=== PATIENT | male | born 1985 | race Caucasian/White ===

== ENCOUNTER 2020-08-10 21:42 | Emergency (ER) | payer MEDICAID ==
--- NOTE | 2020-08-10 23:04 | EDM.PDOC ---
ED HPI GENERAL MEDICAL PROBLEM - General Chief Complaint: Lower Extremity Injury/Pain Stated Complaint: RIGHT KNEE PAIN Time Seen by Provider: 08/10/20 22:21 Source of Information: Reports: Patient, Family, RN Notes Reviewed History Limitations: Reports: No Limitations - History of Present Illness INITIAL COMMENTS - FREE TEXT/NARRATIVE: 35-year-old gentleman presents emergency department day complaint of right knee pain he has a history of chronic knee pain with some ligament injury today he was walking on his knee totally gave him he went down on his knee now he is in significant pain he has used tramadol with some relief. He recently moved to the area does not have a primary care right knee Pain Score (Numeric/FACES): 10 - Related Data Allergies Allergy/AdvReac Type Severity Reaction Status Date / Time bee pollen Allergy Airway Verified 08/10/20 22:32 Tightness pollen extracts Allergy Hives Verified 08/10/20 22:32 Home Meds: Home Meds buPROPion [Wellbutrin] 300 mg PO BEDTIME 08/10/20 [History] Past Medical History Cardiovascular History: Reports: Other (See Below) Other Cardiovascular History: "heart palpatations" Respiratory History: Reports: Sleep Apnea Musculoskeletal History: Reports: Back Pain, Chronic Neurological History: Reports: Headaches, Chronic, Seizure Psychiatric History: Reports: Anxiety, Depression, PTSD, Suicide Attempt - Infectious Disease History Infectious Disease History: Reports: Chicken Pox - Past Surgical History HEENT Surgical History: Reports: Adenoidectomy, Tonsillectomy Musculoskeletal Surgical History: Reports: Carpal Tunnel Social & Family History - Tobacco Use Tobacco Use Status *Q: Never Tobacco User - Caffeine Use Caffeine Use: Reports: Soda - Recreational Drug Use Recreational Drug Use: No Review of Systems - Review of Systems Review Of Systems: See Below Musculoskeletal: Reports: Joint Pain (Right knee pain) ED EXAM, GENERAL - Physical Exam Exam: See Below Free Text/Narrative:: Examination of the right knee are not appreciate any erythema there is no bruising he tolerates joint line palpation but will not tolerate Annamarie's or an anterior drawer test so it is difficult to assess stability of the knee. Exam Limited By: No Limitations General Appearance: Alert, WD/WN, No Apparent Distress Respiratory/Chest: No Respiratory Distress Course - Vital Signs Last Recorded V/S: Last Vital Signs Temp 97.9 F 08/10/20 22:35 Pulse 95 08/10/20 22:35 Resp 18 08/10/20 22:35 BP 163/101 H 08/10/20 22:35 Pulse Ox 96 08/10/20 22:35 Departure - Departure Time of Disposition: 23:03 Disposition: Home, Self-Care 01 Condition: Fair Clinical Impression: Right knee pain Qualifiers: Chronicity: chronic Qualified Code(s): M25.561 - Pain in right knee; G89.29 - Other chronic pain - Discharge Information Instructions: Chronic Knee Pain, Adult Referrals: PCP,None [Primary Care Provider] - Additional Instructions: The orthopedics clinic will call you on Wednesday for an appointment time, use ibuprofen for baseline pain control use tramadol for breakthrough pain, continue to use the Serg wrap and crutches for comfort, call return to the emergency department for worsening of symptoms Sepsis Event Note (ED) - Evaluation Sepsis Screening Result: No Definite Risk - Focused Exam Vital Signs: Vital Signs Temp Pulse Resp BP Pulse Ox 08/10/20 22:35 97.9 F 95 18 163/101 H 96 08/10/20 22:10 97.9 F 95 18 163/101 H 96 - Assessment/Plan Plan: Assessment Acuity = acute on chronic Site and laterality = right knee pain Etiology = history of trauma Manifestations = joint stability issues Location of injury = Home Lab values = none Plan Prescription written for tramadol 50 mg 1 tab p.o. every 4 hours as needed total #15 consultation with orthopedics was set up as well, provided Serg wrap and crutches This note was dictated using [employer] voice recognition software please call with any questions on syntax or grammar.
== END 2020-08-10 23:15 | disposition home or self-care (01) ==
LOC: JP.ED 21:42
DX: G89.29 Other chronic pain (principal); M25.561 Pain in right knee; Z91.030 Bee allergy status; Z91.048 Other nonmedicinal substance allergy status
CPT/HCPCS: 99283

== ENCOUNTER 2020-09-18 08:35 | Day surgery (SDC) | payer MEDICAID ==
[~2020-09-18 08:35] MED LIST: Bupivacaine 0.5% 30 ML SDV ONE; Dexamethasone 4 MG/ML SDV ONE; Lactated Ringers 1,000 ML IV SCH; Nozin Nasal Sanitizer NASBOTH ONE; Ondansetron 4 MG/2 ML SDV ONE; Propofol 200 MG/20 ML SDV ONE; Rocuronium 50 MG/5 ML Vial ONE; Succinylcholine 200 MG/10 ML MDV ONE; ceFAZolin 2 GM in Premix Bag 1 BAG IV ONE; fentaNYL 250 MCG/5 ML SDV ONE
[2020-09-18] MEDS ORDERED: fentaNYL 250 MCG/5 ML SDV ONE (10:19)
[2020-09-18] MEDS ORDERED: Glycopyrrolate 0.2 MG/ML 5 ML MDV ONE (10:25)
[2020-09-18] MEDS ORDERED: Neostigmine Methylsulfate 1 MG/ML 5 ML Syringe ONE (10:25)
[2020-09-18] MEDS ORDERED: Ketorolac 60 MG/2 ML SDV ONE (11:32)
[2020-09-18] MEDS ORDERED: Acetaminophen/oxyCODONE 325-5 MG Tab PO ONE (13:00)
--- NOTE | 2020-09-18 21:41 | OR ---
DATE OF PROCEDURE: 09/18/2020 SURGEON: Fadi Carrasco MD PREOPERATIVE DIAGNOSES: 1. Chondromalacia of patellofemoral joint, right knee. 2. Malalignment of right patella with rupture of medial patellofemoral ligament. POSTOPERATIVE DIAGNOSIS: 1. Chondromalacia of patella, grade 2 and 3. 2. Chondromalacia of trochlea, grade 3 and 4. 3. Patella malalignment with evidence of subluxation/dislocation. PROCEDURE: 1. Arthroscopy of right knee with chondroplasty of patella and chondroplasty with microfracture of trochlea. 2. Arthroscopic lateral release. 3. Medial patellofemoral ligament reconstruction using allograft. ANESTHESIA: General. EVENT MANAGER: LANCE Chapin. INDICATIONS: Apolinar is a 35-year-old gentleman with a history of long-standing right knee pain, catching, and giving way. He has a history of multiple injuries to the knee. X-ray examinations are consistent with chondromalacia of the patellofemoral joint with lateral tracking and subluxation of the patella. He now presents for arthroscopic chondroplasty, lateral release, and medial patellofemoral reconstruction. Risks, benefits, and potential complications of the procedure were discussed. Services of physician assistant education director were utilized for patient positioning, retraction, and placement of allograft for MPFL reconstruction. DESCRIPTION OF PROCEDURE: After adequate anesthesia was obtained, the patient was placed supine with a tourniquet above the right upper thigh. Right leg was prepped and draped in a sterile fashion. Leg was exsanguinated and tourniquet inflated to 300 mmHg pressure. Standard inferior medial and lateral portals were established. The scope was introduced. Multiple small fragments of articular cartilage were present within the synovial fluid. Patellofemoral joint revealed chondromalacia on the medial edge of the patella consistent with subluxation and/or dislocation off the lateral edge of the trochlea. Main weightbearing portion of the patellar dome was intact. Trochlear groove showed an area of chondromalacia grade 3 and grade 4 measuring approximately 6 x 7 mm. Medial compartment showed intact articular cartilage and meniscus. ACL and PCL were intact and the lateral compartment also showed intact articular cartilage and meniscus. All loose fragments of articular cartilage were removed from the knee with shaver. A portion of the medial plica and fat pad were excised for visualization. Flexing and extending the knee showed the patella to track laterally and overhang the trochlea. Shaver was used to debride the medial edge of the patella removing all loose articular fragments. Trochlea was also debrided with the grade 4 area taken down to subchondral bone. Microfracture picks were then utilized to create several perforations. Confirmation of return of blood was noted with the suction. The scope was switched from the lateral to the medial portal. Again, portion of the fat pad and synovium was debrided for visualization and a lateral release was then performed using a Serfas radiofrequency wand under direct visualization. The knee was again taken through range of motion. This significantly improved patella position, although still had a tendency for lateral tracking and hypermobility laterally. The scope was withdrawn. The knee was drained. Incision was made on the medial border of the patella, taken down through the subcutaneous tissues. The fascia was excised from the medial patella without extending into the joint. The midportion of the patella was exposed and point selected for attachment of the allograft which was pared with a rongeur. Drill hole was then made through the patella with a 2 mm drill. A guide pin was placed through this and the patella was then drilled for a distance of approximately 15 mm with a 6 mm reamer. A soft tissue allograft has been prepared on the back table with a whipstitch. Stitches were placed through the eye of the guide pin and used to deliver the graft into the patellar tunnel. The graft was secured with a 5 mm Mitek Nyla interference screw with excellent purchase. A separate incision was made over the medial epicondyle and carried down to the subcutaneous tissues. A tunnel was then made beneath the capsular layer, but without entering the joint between the patella and the medial incision. The graft was delivered through this. Using fluoroscopy, a guide pin was then placed at the attachment of the MPFL to the medial condyle. This was drilled at an angle superiorly and laterally and brought out the skin. A 7 mm reamer was placed over this and drilled for a depth of approximately 25 mm. The end of the graft was also whipstitch. Sutures placed through the eyelet and used to deliver the graft into the femoral tunnel. This was likewise secured with the Nyla interference screw. This also had excellent purchase. The graft had been tensioned with the knee at approximately 30 degree of flexion just removing the slack without over tensioning the graft. Once the graft had been secured, the knee was extended and the patellar glide was assessed. This was found to have some remaining motion medial to lateral, but what could not be subluxed and appeared to center the patella very well without over-correction. Wound was then irrigated. Capsule over the patella was closed with a #1 Vicryl. Skin was closed with 2-0 Vicryl and a running 3-0 Monocryl in all of the incisions. They were infiltrated with Marcaine and a sterile dressing was applied. The patient tolerated the procedure very well. There were no complications. Taken from the operating room in stable condition. Fadi Carrasco MD /[id number]
== END 2020-09-18 13:30 | disposition home or self-care (01) ==
LOC: JP.SDS 08:35
PROVIDERS: ATTEND Specialist
DX: M22.41 Chondromalacia patellae, right knee (principal); M22.2X1 Patellofemoral disorders, right knee; G47.33 Obstructive sleep apnea (adult) (pediatric); F17.210 Nicotine dependence, cigarettes, uncomplicated; E66.01 Morbid (severe) obesity due to excess calories; Z68.41 Body mass index [BMI] 40.0-44.9, adult; Z91.030 Bee allergy status; Z91.09 Other allergy status, other than to drugs and biological substances
CPT/HCPCS: 27427; 29873; 29879; 36415; 76000; 80048; 85027; A9270; C1713; J0330; J0690; J1100; J1885; J2405; J2704; J2710; J3010; J3490; J7120

== ENCOUNTER 2020-10-10 11:02 | Emergency (ER) | payer MEDICAID ==
--- NOTE | 2020-10-10 11:34 | EDM.PDOC ---
ED HPI GENERAL MEDICAL PROBLEM - General Chief Complaint: Chest Pain Stated Complaint: NOT FEELING WELL ANXIOUS HEART PAIN Time Seen by Provider: 10/10/20 11:45 Source of Information: Reports: Patient History Limitations: Reports: No Limitations - History of Present Illness INITIAL COMMENTS - FREE TEXT/NARRATIVE: 35-year-old male, recurring fevers and cough for the past week with fatigue presents today because of a small amount of hemoptysis and the development of right-sided pleuritic chest pain. He is very anxious. He did not get his Covid vaccine. He quit smoking before a right knee surgery several weeks ago. Denies any nausea or vomiting, no significant shortness of breath despite the cough and some sputum production. Onset: Gradual Duration: Day(s): (7 days) Location: Reports: Chest (Left anterior chest discomfort) Associated Symptoms: Reports: Chest Pain, Cough, Fever/Chills, Malaise, Weakness. Denies: Headaches Right Chest Pain Score (Numeric/FACES): 10 - Related Data Allergies Allergy/AdvReac Type Severity Reaction Status Date / Time bee pollen Allergy Airway Verified 10/10/20 11:32 Tightness pollen extracts Allergy Hives Verified 10/10/20 11:32 Home Meds: Home Meds buPROPion [Wellbutrin] 300 mg PO BEDTIME 08/10/20 [History] Divalproex Sodium [Divalproex Sodium ER] 500 mg PO DAILY 09/18/20 [History] Past Medical History Cardiovascular History: Reports: Other (See Below) Other Cardiovascular History: "heart palpatations" Respiratory History: Reports: Sleep Apnea Musculoskeletal History: Reports: Back Pain, Chronic Other Musculoskeletal History: right knee pain Neurological History: Reports: Headaches, Chronic, Seizure Psychiatric History: Reports: Anxiety, Depression, PTSD, Suicide Attempt - Infectious Disease History Infectious Disease History: Reports: Chicken Pox - Past Surgical History HEENT Surgical History: Reports: Adenoidectomy, Tonsillectomy Musculoskeletal Surgical History: Reports: Carpal Tunnel, Other (See Below) Other Musculoskeletal Surgeries/Procedures:: LT knee surgery. R knee scope 09/18/20 Social & Family History - Caffeine Use Caffeine Use: Reports: Coffee, Energy Drinks, Soda ED ROS GENERAL - Review of Systems Review Of Systems: See Below Constitutional: Reports: Fever, Chills, Malaise HEENT: Denies: Throat Pain, Vision Change Respiratory: Reports: Cough, Sputum, Hemoptysis Cardiovascular: Reports: Chest Pain (Localized right anterior chest pain, worse with coughing) GI/Abdominal: Denies: Diarrhea, Nausea, Vomiting Skin: Reports: No Symptoms Neurological: Reports: Dizziness, Weakness. Denies: Headache ED EXAM, GENERAL - Physical Exam Exam: See Below Exam Limited By: No Limitations General Appearance: Alert, Anxious Eye Exam: Bilateral Eye: Normal Inspection Head: Atraumatic Respiratory/Chest: No Respiratory Distress, Lungs Clear Cardiovascular: Regular Rate, Rhythm, Tachycardia (Mild tachycardia) GI/Abdominal: Soft, Non-Tender Extremities: No: Pedal Edema Neurological: Alert, Oriented Psychiatric: Anxious Skin Exam: Warm, Dry Course - Vital Signs Last Recorded V/S: Last Vital Signs Temp 101.0 F H 10/10/20 11:19 Pulse 101 H 10/10/20 12:39 Resp 20 10/10/20 12:39 BP 135/80 10/10/20 12:39 Pulse Ox 96 10/10/20 12:39 - Orders/Labs/Meds Orders: Active Orders 24 hr Category Date Time Status Chest 2V [CR] Routine Exams 10/10/20 12:00 Taken Isolation [COMM] Stat Oth 10/10/20 11:35 Ordered Labs: Laboratory Tests 10/10/20 10/10/20 10/10/20 Range/Units 11:34 12:24 12:24 WBC 6.1 (4.5-11.0) K/uL RBC 4.75 (4.30-5.90) M/uL Hgb 13.9 (12.0-15.0) g/dL Hct 41.6 (40.0-54.0) % MCV 88 (80-98) fL MCH 29 (27-31) pg MCHC 33 (32-36) % Plt Count 198 (150-400) K/uL Neut % (Auto) 71.0 H (36-66) % Lymph % (Auto) 18.9 L (24-44) % [place] % (Auto) 9.6 H (2-6) % Eos % (Auto) 0.2 L (2-4) % Baso % (Auto) 0.3 (0-1) % Sodium 139 L (140-148) mmol/L Potassium 4.0 (3.6-5.2) mmol/L Chloride 101 (100-108) mmol/L Carbon Dioxide 26 (21-32) mmol/L Anion Gap 16.0 H (5.0-14.0) mmol/L BUN 13 (7-18) mg/dL Creatinine 1.2 (0.8-1.3) mg/dL Est Cr Clr Drug Dosing 99.90 mL/min Estimated GFR (MDRD) > 60 (>60) Glucose 105 (74-106) mg/dL Calcium 8.4 L (8.5-10.1) mg/dL Influenza Type A RNA Negative (NEGATIVE) RSV RNA (INAAT) Negative (NEGATIVE) Influenza Type B RNA Negative (NEGATIVE) SARS-CoV-2 RNA (LEV) Positive H (NEGATIVE) - Re-Assessments/Exams Free Text/Narrative Re-Assessment/Exam: 10/10/20 11:59 Patient brought in an emesis bag with a small amount of scant sputum which does appear to have some blood. A 4 Plex viral study including Covid was obtained, and when that returns we will get a chest x-ray. Meanwhile a CBC and BMP were drawn. 10/10/20 12:35 CBC showed a normal white count, 2 view chest x-ray showed slight patchy bilateral infiltrates typical of Covid. It did come back positive, so he was offered BAM therapy and accepted. This will be set up. Departure - Departure Time of Disposition: 12:49 Disposition: Home, Self-Care 01 Clinical Impression: Pneumonia due to COVID-19 virus Instructions: COVID-19 Referrals: PCP,None [Primary Care Provider] - Forms: ED Department Discharge Care Plan Goals: You will be discharged to receive antibiotic therapy, when finished rest, fluids, and increase activity as tolerated. Return if worsening such as difficulty breathing or persistent vomiting.. Sepsis Event Note (ED) - Evaluation Sepsis Screening Result: No Definite Risk - Focused Exam Vital Signs: Vital Signs Temp Pulse Resp BP Pulse Ox 10/10/20 12:39 101 H 20 135/80 96 10/10/20 11:19 101.0 F H 108 H 19 145/88 H 95 - My Orders Last 24 Hours: My Active Orders 10/10/20 11:35 Isolation [COMM] Stat 10/10/20 12:00 Chest 2V [CR] Routine - Assessment/Plan Last 24 Hours: My Active Orders 10/10/20 11:35 Isolation [COMM] Stat 10/10/20 12:00 Chest 2V [CR] Routine
[2020-10-10 12:20] LABS: CORONAVIRUS COVID-19 NAA POSITIVE (NEGATIVE)
--- NOTE | 2020-10-10 13:49 | CRLCR ---
INDICATION: Shortness of breath TECHNIQUE: Chest 2 views. COMPARISON: None FINDINGS: The heart is normal in size. There is mild bilateral patchy opacities. Negative for pleural effusion or pneumothorax. The bones are unremarkable. IMPRESSION: Mild patchy bilateral opacities, could be due to a viral infectious process, other considerations include pulmonary edema. Dictated by Kay Varma MD @ 10/10/2020 1:47:10 PM Dictated by: Kay Varma MD @ 10/10/2020 13:47:16 (Electronically Signed)
== END 2020-10-10 12:50 | disposition home or self-care (01) ==
LOC: JP.ED 11:02
DX: U07.1 COVID-19 (principal); J12.82 Pneumonia due to coronavirus disease 2019; Z91.030 Bee allergy status; Z91.048 Other nonmedicinal substance allergy status
CPT/HCPCS: 0241U; 36415; 71046; 80048; 85025; 99284

== ENCOUNTER 2021-01-12 20:50 | Emergency (ER) | payer MEDICAID ==
[2021-01-12] MEDS ORDERED: Ketorolac 30 MG/ML SDV IM ONE (22:12)
--- NOTE | 2021-01-12 22:20 | EDM.PDOC ---
ED HPI GENERAL MEDICAL PROBLEM - General Chief Complaint: Back Pain or Injury Stated Complaint: EXCRUTIATING BACK PAIN FOR 3 DAYS Time Seen by Provider: 01/12/21 22:00 Source of Information: Reports: Patient History Limitations: Reports: No Limitations - History of Present Illness INITIAL COMMENTS - FREE TEXT/NARRATIVE: 35-year-old male with left lower back pain for the past 3 days. It is very sharp, painful to try to walk, but no radiating symptoms down his legs. He has had issues with his back in the past but up until 3 or 4 days ago he was doing well. He is significantly overweight, he has not been as active because of a recent knee surgery. No history of trauma, no misstep or turning issue. Onset: Gradual Duration: Day(s): (Symptoms for 3 or 4 days) Location: Reports: Back (Left paralumbar area) Quality: Reports: Sharp, Stabbing Worsens with: Reports: Other (Ambulating is painful), Movement Associated Symptoms: Reports: No Other Symptoms lower back pain Pain Score (Numeric/FACES): 10 - Related Data Allergies Allergy/AdvReac Type Severity Reaction Status Date / Time bee pollen Allergy Airway Verified 01/12/21 21:45 Tightness pollen extracts Allergy Hives Verified 01/12/21 21:45 Home Meds: Home Meds buPROPion [Wellbutrin] 300 mg PO BEDTIME 08/10/20 [History] Divalproex Sodium [Divalproex Sodium ER] 500 mg PO DAILY 09/18/20 [History] Past Medical History Cardiovascular History: Reports: Other (See Below) Other Cardiovascular History: "heart palpatations" Respiratory History: Reports: Sleep Apnea Musculoskeletal History: Reports: Back Pain, Chronic Other Musculoskeletal History: right knee pain Neurological History: Reports: Headaches, Chronic, Seizure Psychiatric History: Reports: Anxiety, Depression, PTSD, Suicide Attempt - Infectious Disease History Infectious Disease History: Reports: Chicken Pox - Past Surgical History HEENT Surgical History: Reports: Adenoidectomy, Tonsillectomy Musculoskeletal Surgical History: Reports: Carpal Tunnel, Other (See Below) Other Musculoskeletal Surgeries/Procedures:: LT knee surgery. R knee scope 09/18/20 Social & Family History - Tobacco Use Tobacco Use Status *Q: Former Tobacco User Used Tobacco, but Quit: Yes Month/Year Tobacco Last Used: 0 - Caffeine Use Caffeine Use: Reports: Coffee, Energy Drinks, Soda, Tea - Recreational Drug Use Recreational Drug Use: No ED ROS GENERAL - Review of Systems Review Of Systems: See Below Constitutional: Denies: Fever, Chills HEENT: Reports: No Symptoms Respiratory: Denies: Shortness of Breath Cardiovascular: Denies: Chest Pain GI/Abdominal: Denies: Nausea, Vomiting Musculoskeletal: Reports: Back Pain Skin: Denies: Bruising, Rash, Erythema Neurological: Reports: Other (No radiculopathy down the leg, no paresthesias). Denies: Paresthesia ED EXAM,LOWER BACK PAIN/INJURY - Physical Exam Exam: See Below Exam Limited By: No Limitations General Appearance: Alert, No Apparent Distress (Looks uncomfortable but not distressed) Head: Atraumatic Respiratory/Chest: No Respiratory Distress Back Exam: Paraspinal Tenderness (Patient does have paraspinal tenderness to the left of the lumbar spine, it is worse with rotation to the right against resistance, less so to the left). No: CVA Tenderness (R), CVA Tenderness (L) Extremities: Other (Increased pulling and discomfort in the back with extension of the left leg but no radiculopathy) Course - Vital Signs Last Recorded V/S: Last Vital Signs Temp 97.5 F 01/12/21 21:47 Pulse 103 H 01/12/21 21:47 Resp 18 01/12/21 21:47 BP 149/94 H 01/12/21 21:47 Pulse Ox 93 L 01/12/21 21:47 - Orders/Labs/Meds Meds: Medications Discontinued Medications Generic Name Dose Route Start Last Admin Trade Name Gavin PRN Reason Stop Dose Admin Ketorolac Tromethamine 30 mg 01/12/21 22:12 Ketorolac 30 Mg/Ml Sdv IM 01/12/21 22:13 ONETIME ONE - Re-Assessments/Exams Free Text/Narrative Re-Assessment/Exam: 01/12/21 22:18 Patient was given 30 mg of IM Toradol, and 10 additional doses to take 3 times a day for the next 3 days along with Flexeril. Encouraged him to try to stay active, and recheck in 2 to 3 days if not starting to improve. Departure - Departure Time of Disposition: 22:33 Disposition: Home, Self-Care 01 Clinical Impression: Low back pain Qualifiers: Chronicity: acute Back pain laterality: left Sciatica presence: without sciatica Qualified Code(s): M54.5 - Low back pain - Discharge Information Instructions: Acute Back Pain, Adult Referrals: PCP,None [Primary Care Provider] - Forms: ED Department Discharge Care Plan Goals: Take pain medication and muscle relaxer up to 3 times a day as prescribed for e next couple of days and try to increase activity as tolerated. Consider rechecking at the clinic in 3 to 4 days if not improving satisfactorily, a physical therapy consult may be necessary. Sepsis Event Note (ED) - Evaluation Sepsis Screening Result: No Definite Risk - Focused Exam Vital Signs: Vital Signs Temp Pulse Resp BP Pulse Ox 01/12/21 21:47 97.5 F 103 H 18 149/94 H 93 L 01/12/21 21:37 97.5 F 103 H 18 149/94 H 93 L
== END 2021-01-12 22:33 | disposition home or self-care (01) ==
LOC: JP.ED 20:50
DX: M54.5 Low back pain (principal); Z91.030 Bee allergy status; Z91.09 Other allergy status, other than to drugs and biological substances; Z87.891 Personal history of nicotine dependence
CPT/HCPCS: 96372; 99283

== ENCOUNTER 2021-11-16 10:29 | Emergency (ER) | payer MEDICAID | END 2021-11-16 11:36 | disposition home or self-care (01) | LOC: JP.ED 10:29 | DX: R05.9 Cough, unspecified (principal); Z91.030 Bee allergy status | CPT/HCPCS: 99281; 99283 ==

== ENCOUNTER 2022-07-01 23:06 | Emergency (ER) | payer MEDICAID ==
[2022-07-01] MEDS ORDERED: Ketorolac 30 MG/ML SDV IM ONE (23:40)
== END 2022-07-02 00:40 | disposition home or self-care (01) ==
LOC: JP.ED 23:06
DX: R07.89 Other chest pain (principal); I10 Essential (primary) hypertension; E66.01 Morbid (severe) obesity due to excess calories; Z68.43 Body mass index [BMI] 50.0-59.9, adult; Z91.030 Bee allergy status; Z91.048 Other nonmedicinal substance allergy status
CPT/HCPCS: 36415; 84484; 93005; 96372; 99285; J1885; 93010; 99283

== ENCOUNTER 2024-02-02 10:29 | Observation (INO) | payer MEDICAID ==
[2024-02-02 11:08] LABS: BASOPHILS ABSOLUTE AUTO 0.05 K/uL (0.00-0.10); BASOPHILS PERCENT AUTO 0.5 % (0.1-1.3); EOSINOPHILS ABSOLUTE AUTO 0.09 K/uL (0.00-0.40); EOSINOPHILS PERCENT AUTO 0.9 % (0.0-5.4); HEMATOCRIT 42.1 % (38.4-49.7); HEMOGLOBIN 15.2 g/dL (12.9-16.9); IMMATURE GRAN ABSOLUTE AUTO 0.03 K/uL (0.00-0.23); IMMATURE GRAN PERCENT AUTO 0.3 % (0.0-0.7); LYMPHOCYTES ABSOLUTE AUTO 1.54 K/uL (0.8-3.3); LYMPHOCYTES PERCENT AUTO 16.1 % (11.4-47.7); MEAN CORPUSCULAR HEMOGLOBIN 30.3 pg (31.6-35.5); MEAN CORPUSCULAR HGB CONC 36.1 g/dL (31.6-35.5); MONOCYTES ABSOLUTE AUTO 0.88 K/uL (0.20-0.90); MONOCYTES PERCENT AUTO 9.2 % (3.3-12.6); NEUTROPHILS ABSOLUTE AUTO 6.97 K/uL (1.0-7.6); PLATELET COUNT,PLT 256 K/uL (130-375); RED BLOOD CELL COUNT 5.01 M/uL (4.14-5.76); WHITE BLOOD CELL COUNT,WBC 9.6 K/uL (3.2-11.0)
[2024-02-02] MEDS: Lactated Ringers 1,000 ML IV SCH (11:14)
[2024-02-02] MEDS: Nozin Nasal Sanitizer NASBOTH ONE (11:15)
[2024-02-02] MEDS ORDERED: fentaNYL 100 MCG/2 ML SDV ONE (11:28)
[2024-02-02] MEDS ORDERED: Midazolam 1 MG/ML 2 ML SDV ONE (11:28)
[2024-02-02 11:29] LABS: A/G RATIO 1.1 (1.2-2.2); ALANINE AMINOTRANSFERASE,ALT 51 U/L (12-78); ALBUMIN 4.4 g/dL (3.4-5.0); ALKALINE PHOSPHATASE 78 U/L (46-116); ASPARTATE AMNIOTRANSFERASE,AST 36 U/L (15-37); BILIRUBIN TOTAL 0.7 mg/dL (0.2-1.0); BLOOD UREA NITROGEN,BUN 12 mg/dL (7-18); CALCIUM 9.6 mg/dL (8.5-10.1); CARBON DIOXIDE,CO2 22 mmol/L (21-32); CHLORIDE,CL 103 mmol/L (100-108); CREATININE 1.4 mg/dL (0.8-1.3); EST CRCL DRUG DOSING (CG) 77.94 mL/min; ESTIMATED GFR 66 mL/min (>60); GLUCOSE RANDOM 117 mg/dL (74-106); POTASSIUM,K 3.7 mmol/L (3.6-5.2); PROTEIN TOTAL,TP 8.4 g/dL (6.4-8.2); SODIUM,NA 139 mmol/L (140-148)
[2024-02-02] MEDS ORDERED: Propofol 200 MG/20 ML SDV ONE (11:29)
[2024-02-02 11:34] LABS: ANION GAP 17.7 mmol/L (5.0-14.0)
[2024-02-02] MEDS ORDERED: Tranexamic Acid 1,000 MG in Sodium Chloride 0.9% 50 ML IV ONE (12:15)
[2024-02-02] MEDS ORDERED: Ondansetron 4 MG/2 ML SDV IVPUSH PRN (12:42)
[2024-02-02] MEDS ORDERED: Magnesium Hydroxide 400 MG/5 ML Susp 30 ML Cup PO PRN (12:42)
[2024-02-02] MEDS ORDERED: Docusate Sodium 100 MG Cap PO PRN (12:42)
[2024-02-02] MEDS ORDERED: Sodium Chloride 0.9% 1,000 ML IV SCH (12:45)
[2024-02-02] MEDS ORDERED: SEMAGLUTIDE 2.4 MG/0.75 ML SQ SCH (12:45)
[2024-02-02] MEDS ORDERED: Neostigmine Methylsulfate 10 MG/10 ML MDV ONE (13:02)
[2024-02-02] MEDS ORDERED: Glycopyrrolate 0.2 MG/ML 5 ML MDV ONE (13:02)
[2024-02-02] MEDS ORDERED: Ondansetron 4 MG/2 ML SDV ONE (13:03)
[2024-02-02] MEDS ORDERED: Rocuronium 50 MG/5 ML Vial ONE ×2 (13:03→17:31)
[2024-02-02] MEDS ORDERED: Succinylcholine 200 MG/10 ML MDV ONE (13:03)
[2024-02-02] MEDS ORDERED: Dexamethasone 4 MG/ML SDV ONE (13:03)
[2024-02-02] MEDS: Bupivacaine 0.5% 50 ML MDV ONE (14:39)
[2024-02-02] MEDS: ceFAZolin 2 GM in Premix Bag 1 BAG IV ONE (16:37)
[2024-02-02] MEDS ORDERED: fentaNYL 250 MCG/5 ML SDV ONE ×2 (16:44→18:22)
[2024-02-02] MEDS: Tranexamic Acid 1,000 MG in Sodium Chloride 0.9% 50 ML IV ONE (17:00)
[2024-02-02] MEDS ORDERED: Lactated Ringers 1,000 ML ONE (17:31)
[2024-02-02] MEDS: Morphine 2 MG/ML SYRINGE IVPUSH ONE (20:02)
[2024-02-02] MEDS: Acetaminophen 325 MG Tab PO SCH (20:02)
[2024-02-02] MEDS: Morphine 2 MG/ML SYRINGE IVPUSH PRN (20:04)
[2024-02-02] MEDS: Nozin Nasal Sanitizer NASBOTH SCH (20:06)
[2024-02-02] MEDS: oxyCODONE 5 MG Tab PO PRN (22:10)
[2024-02-02] MEDS: ceFAZolin 2 GM in Premix Bag 1 BAG IV SCH (22:26)
[2024-02-03] MEDS: Aspirin 325 MG Tab.EC PO SCH (08:25)
[2024-02-03] MEDS: Divalproex Sodium Delayed-Release 250 MG Tab.CR PO SCH (08:25)
[2024-02-03] MEDS: Methylphenidate 10 MG Tab PO SCH (08:25)
[2024-02-03] MEDS: Losartan 50 MG Tab PO SCH (08:26)
[2024-02-03] MEDS: Cholecalciferol (Vitamin D3) 25 MCG Tab PO SCH (08:26)
[2024-02-03] MEDS ORDERED: Non-Formulary Medication 1 Each (Divalproex Sodium [Divalproex Sodium Er] 500 MG Tab.Er.24 PO SCH (09:00)
[2024-02-03] MEDS ORDERED: METHYLPHENIDATE HCL 54 MG PO SCH (09:00)
[2024-02-04] MEDS: oxyCODONE 5 MG Tab PO PRN (09:15)
== END 2024-02-05 13:30 | disposition home or self-care (01) ==
LOC: JP.SDS 10:29 → JP.MS 19:50 → JP.SDS 02-03 14:31
PROVIDERS: ADMIT Specialist; ATTEND Specialist
DX: M17.12 Unilateral primary osteoarthritis, left knee (principal); I10 Essential (primary) hypertension; F41.1 Generalized anxiety disorder; E66.01 Morbid (severe) obesity due to excess calories
CPT/HCPCS: 01402; 20985; 27447; 36415; 73560; 80053; 85025; 96374; 97110; 97116; 97161; 97165; 97530; 97535; A9270; C1713; C1776; G0378; J0330; J0665; J0690; J1100; J1596; J2250; J2270; J2405; J2704; J2710; J3010; J3490; J7120

== ENCOUNTER 2024-02-13 09:40 | Emergency (ER) | payer MEDICAID ==
[2024-02-13 11:10] LABS: BASOPHILS ABSOLUTE AUTO 0.07 K/uL (0.00-0.10); BASOPHILS PERCENT AUTO 0.6 % (0.1-1.3); EOSINOPHILS ABSOLUTE AUTO 0.27 K/uL (0.00-0.40); EOSINOPHILS PERCENT AUTO 2.4 % (0.0-5.4); HEMATOCRIT 37.3 % (38.4-49.7); IMMATURE GRAN ABSOLUTE AUTO 0.14 K/uL (0.00-0.23); IMMATURE GRAN PERCENT AUTO 1.2 % (0.0-0.7); LYMPHOCYTES ABSOLUTE AUTO 2.02 K/uL (0.8-3.3); LYMPHOCYTES PERCENT AUTO 17.9 % (11.4-47.7); MEAN CORPUSCULAR HEMOGLOBIN 30.1 pg (31.6-35.5); MEAN CORPUSCULAR HGB CONC 34.9 g/dL (31.6-35.5); MEAN CORPUSCULAR VOLUME 86.3 fL (81.4-99.0); MONOCYTES ABSOLUTE AUTO 0.79 K/uL (0.20-0.90); NEUTROPHILS ABSOLUTE AUTO 7.99 K/uL (1.0-7.6); NEUTROPHILS PERCENT AUTO 70.9 % (40.0-78.1); PLATELET COUNT,PLT 423 K/uL (130-375); RED BLOOD CELL COUNT 4.32 M/uL (4.14-5.76); WHITE BLOOD CELL COUNT,WBC 11.3 K/uL (3.2-11.0)
[2024-02-13] MEDS: Ketorolac 30 MG/ML SDV IVPUSH ONE (11:18)
[2024-02-13] MEDS: Sodium Chloride 0.9% 1,000 ML IV ONE (11:18)
[2024-02-13 11:27] LABS: APPEARANCE,URINE SLIGHTLY CLOUDY (CLEAR); BILIRUBIN,URINE SMALL (NEGATIVE); COLOR,URINE YELLOW (YELLOW); GLUCOSE,URINE NEGATIVE (NEGATIVE); KETONES,URINE TRACE mg/dL (NEGATIVE); LEUKOCYTE ESTERASE,URINE NEGATIVE (NEGATIVE); NITRITE,URINE NEGATIVE (NEGATIVE); OCCULT BLOOD,URINE LARGE (NEGATIVE); PH,URINE 5.5 (5.0-8.0); PROTEIN,URINE 100 mg/dL (NEGATIVE); UROBILINOGEN,URINE 0.2 EU/dL (0.2-1.0)
[2024-02-13 11:31] LABS: A/G RATIO 0.9 (1.2-2.2); ALANINE AMINOTRANSFERASE,ALT 64 U/L (12-78); ALKALINE PHOSPHATASE 82 U/L (46-116); ANION GAP 11.3 mmol/L (5.0-14.0); ASPARTATE AMNIOTRANSFERASE,AST 36 U/L (15-37); BILIRUBIN TOTAL 0.6 mg/dL (0.2-1.0); BLOOD UREA NITROGEN,BUN 18 mg/dL (7-18); CALCIUM 9.7 mg/dL (8.5-10.1); CARBON DIOXIDE,CO2 26 mmol/L (21-32); CHLORIDE,CL 103 mmol/L (100-108); CREATININE 1.6 mg/dL (0.8-1.3); EST CRCL DRUG DOSING (CG) 68.71 mL/min; ESTIMATED GFR 56 mL/min (>60); GLUCOSE RANDOM 130 mg/dL (74-106); POTASSIUM,K 4.4 mmol/L (3.6-5.2); PROTEIN TOTAL,TP 8.5 g/dL (6.4-8.2); SODIUM,NA 140 mmol/L (140-148)
[2024-02-13 11:34] LABS: AMORPHOUS SEDIMENT,URINE MANY; BACTERIA,URINE MODERATE; EPITHELIAL CELLS,URINE RARE; MUCUS,URINE MANY; RBC,URINE 50-75 (0-5); WBC,URINE 0-5 (0-5)
== END 2024-02-13 12:54 | disposition home or self-care (01) ==
LOC: JP.ED 09:40
DX: N20.0 Calculus of kidney (principal); I10 Essential (primary) hypertension; Z96.652 Presence of left artificial knee joint; Z86.16 Personal history of COVID-19; Z79.899 Other long term (current) drug therapy; Z79.891 Long term (current) use of opiate analgesic; Z91.048 Other nonmedicinal substance allergy status; Z91.030 Bee allergy status
CPT/HCPCS: 36415; 74176; 80053; 81001; 83690; 85025; 85379; 96361; 96374; 99285; J1885; J7030

== ENCOUNTER 2024-03-11 17:05 | Emergency (ER) | payer MEDICAID ==
[2024-03-11] MEDS: Ketorolac 30 MG/ML SDV IM ONE (17:31)
[2024-03-11 18:19] LABS: BASOPHILS ABSOLUTE AUTO 0.06 K/uL (0.00-0.10); BASOPHILS PERCENT AUTO 0.6 % (0.1-1.3); EOSINOPHILS ABSOLUTE AUTO 0.04 K/uL (0.00-0.40); EOSINOPHILS PERCENT AUTO 0.4 % (0.0-5.4); HEMATOCRIT 40.9 % (38.4-49.7); IMMATURE GRAN ABSOLUTE AUTO 0.03 K/uL (0.00-0.23); IMMATURE GRAN PERCENT AUTO 0.3 % (0.0-0.7); LYMPHOCYTES ABSOLUTE AUTO 0.97 K/uL (0.8-3.3); LYMPHOCYTES PERCENT AUTO 9.3 % (11.4-47.7); MEAN CORPUSCULAR HEMOGLOBIN 29.9 pg (31.6-35.5); MEAN CORPUSCULAR HGB CONC 34.2 g/dL (31.6-35.5); MEAN CORPUSCULAR VOLUME 87.4 fL (81.4-99.0); MONOCYTES ABSOLUTE AUTO 0.48 K/uL (0.20-0.90); MONOCYTES PERCENT AUTO 4.6 % (3.3-12.6); NEUTROPHILS ABSOLUTE AUTO 8.84 K/uL (1.0-7.6); NEUTROPHILS PERCENT AUTO 84.8 % (40.0-78.1); PLATELET COUNT,PLT 258 K/uL (130-375); RED BLOOD CELL COUNT 4.68 M/uL (4.14-5.76); WHITE BLOOD CELL COUNT,WBC 10.4 K/uL (3.2-11.0)
[2024-03-11 18:40] LABS: A/G RATIO 1.2 (1.2-2.2); ALANINE AMINOTRANSFERASE,ALT 63 U/L (12-78); ALBUMIN 4.5 g/dL (3.4-5.0); ALKALINE PHOSPHATASE 87 U/L (46-116); ANION GAP 15.2 mmol/L (5.0-14.0); ASPARTATE AMNIOTRANSFERASE,AST 34 U/L (15-37); BILIRUBIN TOTAL 0.5 mg/dL (0.2-1.0); BLOOD UREA NITROGEN,BUN 11 mg/dL (7-18); CALCIUM 9.9 mg/dL (8.5-10.1); CARBON DIOXIDE,CO2 27 mmol/L (21-32); CHLORIDE,CL 101 mmol/L (100-108); CREATININE 1.7 mg/dL (0.8-1.3); EST CRCL DRUG DOSING (CG) 62.75 mL/min; ESTIMATED GFR 52 mL/min (>60); GLUCOSE RANDOM 131 mg/dL (74-106); POTASSIUM,K 4.2 mmol/L (3.6-5.2); PROTEIN TOTAL,TP 8.2 g/dL (6.4-8.2); SODIUM,NA 139 mmol/L (140-148)
[2024-03-11] MEDS: Morphine 2 MG/ML SYRINGE IVPUSH ONE (19:16)
[2024-03-11 19:44] LABS: APPEARANCE,URINE CLOUDY (CLEAR); BILIRUBIN,URINE SMALL (NEGATIVE); GLUCOSE,URINE NEGATIVE (NEGATIVE); KETONES,URINE TRACE mg/dL (NEGATIVE); LEUKOCYTE ESTERASE,URINE NEGATIVE (NEGATIVE); NITRITE,URINE NEGATIVE (NEGATIVE); OCCULT BLOOD,URINE LARGE (NEGATIVE); PH,URINE 5.5 (5.0-8.0); PROTEIN,URINE >=300 mg/dL (NEGATIVE)
[2024-03-11] MEDS: HYDROmorphone 0.5 MG/0.5 ML Syringe IVPUSH ONE (20:01)
[2024-03-11] MEDS: Sodium Chloride 0.9% 1,000 ML IV SCH (20:01)
[2024-03-11 20:11] LABS: AMORPHOUS SEDIMENT,URINE NOT SEEN; BACTERIA,URINE MODERATE; COLOR,URINE OTHER (YELLOW); EPITHELIAL CELLS,URINE FEW; MUCUS,URINE MODERATE; RBC,URINE 40-50 (0-5)
[2024-03-11] MEDS: fentaNYL 50 MCG/ML SDV IVPUSH ONE (20:59)
[2024-03-11] MEDS: Tamsulosin 0.4 MG Cap.ER PO ONE (21:03)
[2024-03-11] MEDS ORDERED: traMADol 50 MG Tab PO PRN (21:08)
[2024-03-11] MEDS: traMADol 50 MG Tab PO ONE (21:33)
== END 2024-03-11 21:38 | disposition home or self-care (01) ==
LOC: JP.ED 17:05
DX: N13.2 Hydronephrosis with renal and ureteral calculous obstruction (principal); I10 Essential (primary) hypertension; Z88.0 Allergy status to penicillin; Z91.048 Other nonmedicinal substance allergy status; Z79.899 Other long term (current) drug therapy; Z86.16 Personal history of COVID-19; Z87.891 Personal history of nicotine dependence
CPT/HCPCS: 36415; 74176; 80053; 81001; 85025; 96361; 96372; 96374; 96375; 99284; A9270; J1171; J1885; J2270; J3010; J7030